=== PATIENT | male | born 1955 | race Caucasian/White ===

== ENCOUNTER 2022-11-25 07:15 | Inpatient (IN) | payer MEDICARE, BC ==
[~2022-11-25] VITALS: Ht 177.8 cm; Wt 95.3 kg
--- NOTE | 2022-11-25 07:36 | NUR ---
Dr De La Cruz at the bedside for MSE.
[2022-11-25] MEDS ORDERED: IV NS 1000 ML 1,000 ML IV ONE (07:45)
[2022-11-25 07:59] LABS: HEMATOCRIT 49.7 % (36.7-47.1); MEAN CORPUSCULAR HEMOGLOBIN 29.6 uug (23.8-33.4); MEAN CORPUSCULAR VOLUME 87.1 fL (73.0-96.2); PLATELET COUNT (AUTO) 217 K/uL (152-348)
[2022-11-25 08:03] LABS: SITE, VBG LEFT BRACHIAL
[2022-11-25 08:13] LABS: BILIRUBIN,TOTAL 0.8 mg/dL (0.2-1.0); CREATININE 1.7 mg/dL (0.6-1.3); POTASSIUM 4.3 mmol/L (3.5-5.1); TOTAL PROTEIN, SERUM 7.2 g/dL (6.4-8.2)
[2022-11-25 08:20] LABS: THYROID STIMULATING HORMONE 6.738 mIU/mL (0.358-3.740)
--- NOTE | 2022-11-25 10:16 | NUR ---
RODRICK Romeo spoke to Que Ayala for M/S admit.
[2022-11-25] MEDS ORDERED: ONDANSETRON 4 MG/2 ML VIAL IV PRN (10:45)
[2022-11-25] MEDS ORDERED: MAGNESIUM HYDROXIDE 30 ML LIQUID UDC PO PRN (10:45)
[2022-11-25] MEDS ORDERED: REMEDY ESSENTIAL ZINC PASTE 113 GM TP PRN (10:45)
[2022-11-25] MEDS ORDERED: ACETAMINOPHEN 325 MG TABLET PO PRN (10:45)
[2022-11-25] MEDS ORDERED: LISD70CA PO (11:02)
[2022-11-25] MEDS ORDERED: BUPR200T3 PO (11:02)
[2022-11-25] MEDS ORDERED: VILA40TA PO (11:02)
[2022-11-25] MEDS ORDERED: AMPH10CA3 PO (11:02)
[2022-11-25] MEDS ORDERED: PRAM0.253 PO (11:03)
--- NOTE | 2022-11-25 11:25 | NUR ---
Pt signed MRI questioner, placed in the chart.
--- NOTE | 2022-11-25 11:28 | NUR ---
Spoke to blossom Sosa, ambulance transfer at 1300 by [facility]. Pt made aware.
[2022-11-25 11:29] LABS: *BILIRUBIN,URIN NEGATIVE (NEGATIVE); *BLOOD, URINE NEGATIVE (NEGATIVE); *CLARITY,URINE CLEAR (CLEAR); *COLOR,URINE YELLOW (YELLOW); *KETONES,URINE 2+ (NEGATIVE); *UROBILINOGEN,URINE 0.2 E.U./dl (NORMAL); LEUKOCYTE ESTERASE ,URINE NEGATIVE (NEGATIVE); NITRITE, URINE NEGATIVE (NEGATIVE); UGLUCOSE 3+ (NEGATIVE)
--- NOTE | 2022-11-25 13:27 | NUR ---
Report given to instrument inspector. Pt left ER via gurney to go to [facility] for MRI.
--- NOTE | 2022-11-25 13:35 | NUR ---
report receive from claritza fields. pt presented in er complaining of lower leg weakness. pt is aox3-4. no complain of pain.pt blood sugar level is 493 but asymptomatic. pt has received 1L NS bolus at er. pt will go to [facility] for brain MRI. pt will be admitted [facility] floor. asia sargent N.P will follow up care
--- NOTE | 2022-11-25 15:25 | NUR ---
Pt back from MRI, belongings and admit paper provided for food technologist. Pt was tranfered to room 320 by food technologist.
[2022-11-25 15:40] VITALS: BP 137/77
[2022-11-25] MEDS: ASPIRIN 81 MG TAB.CHEW PO SCH (17:39)
[2022-11-25] MEDS: IV NS 1000 ML 1,000 ML IV PRN (17:39)
[2022-11-25] MEDS ORDERED: DEXTROSE 50% 50 ML DISP.SYRIN IV PRN (17:45)
[2022-11-25] MEDS ORDERED: INSULIN REGULAR, HUMAN 300 UNITS/3 ML VIAL SQ PRN (17:45)
--- NOTE | 2022-11-25 18:35 | NUR ---
bs 426. gave 20 units humulin r prn. notified. no new order
[2022-11-25] MEDS: BLOOD SUGAR DIAGNOSTIC 1 EACH STRIP VI SCH ×2 (18:41→21:33)
[2022-11-25] MEDS: INSULIN REGULAR, HUMAN 300 UNIT/3 ML VIAL SQ PRN (18:45)
[2022-11-25] MEDS ORDERED: DEXT10TA7 PO (19:37)
[2022-11-25] MEDS ORDERED: PRAM1TAB7 PO (20:36)
--- NOTE | 2022-11-25 21:30 | NUR ---
patient in bed aaox4 . no respiratory distress noted . ivf bee; saline in progress at 150 ml/hr. fingerstick done and result is 273 to follow ISS .
[2022-11-25] MEDS: ATORVASTATIN 20 MG TABLET PO SCH (21:33)
--- NOTE | 2022-11-25 21:33 | NUR ---
DUE PM MEDICATION GIVEN AND PATIENT TOOK MEDICATION WITH WATER .
[2022-11-26] MEDS: IV NS 1000 ML 1,000 ML IV PRN ×3 (00:22→19:15)
--- NOTE | 2022-11-26 00:30 | NUR ---
SLEEPING IN BED NO S/S OF PAIN OR RESPI.DISTRESS
[2022-11-26] MEDS: BLOOD SUGAR DIAGNOSTIC 1 EACH STRIP VI SCH ×4 (06:32→20:23)
[2022-11-26 07:28] LABS: MEAN CORPUSCULAR HEMOGLOBIN 29.4 uug (23.8-33.4); MEAN CORPUSCULAR VOLUME 88.1 fL (73.0-96.2); PLATELET COUNT (AUTO) 164 K/uL (152-348)
[2022-11-26] MEDS: buPROPion SR 100 MG TABLET.SA PO SCH (08:19)
[2022-11-26] MEDS: PRAMIPEXOLE 1 MG TABLET PO SCH (08:19)
[2022-11-26] MEDS: ASPIRIN 81 MG TAB.CHEW PO SCH (08:19)
[2022-11-26] MEDS: INSULIN REGULAR, HUMAN 300 UNIT/3 ML VIAL SQ PRN ×4 (08:21→20:25)
[2022-11-26 08:25] LABS: CREATININE 1.6 mg/dL (0.6-1.3); POTASSIUM 4.7 mmol/L (3.5-5.1)
[2022-11-26] MEDS ORDERED: VILAZODONE HYDROCHLORIDE 40 MG PO SCH (09:00)
[2022-11-26] MEDS ORDERED: LISDEXAMFETAMINE DIMESYLATE 70 MG PO SCH (09:00)
[2022-11-26 09:40] LABS: *BILIRUBIN,URIN NEGATIVE (NEGATIVE); *BLOOD, URINE NEGATIVE (NEGATIVE); *CLARITY,URINE CLEAR (CLEAR); *COLOR,URINE YELLOW (YELLOW); *KETONES,URINE 1+ (NEGATIVE); *UROBILINOGEN,URINE 0.2 E.U./dl (NORMAL); LEUKOCYTE ESTERASE ,URINE NEGATIVE (NEGATIVE); NITRITE, URINE NEGATIVE (NEGATIVE); PH,URINE 5.5 (5.0-8.0); UGLUCOSE 2+ (NEGATIVE)
[2022-11-26 09:51] LABS: *CREATININE,URINE 79.3 mg/dL (30-125); *URINE TOTAL PROTEIN RANDOM 13.7 mg/dL (<150/24HR)
[2022-11-26] MEDS ORDERED: ALPRAZOLAM 0.25 MG TABLET PO PRN (11:00)
[2022-11-26 11:57] VITALS: BP 106/50
[2022-11-26 14:44] LABS: RBC,URINE NONE SEEN /HPF (0-3); WBC,URINE NONE SEEN /HPF (0-3)
[2022-11-26 14:45] LABS: BACTERIA,URINE NONE SEEN /HPF (NONE SEEN); SQUAMOUS EPITHELIAL CELL,UR FEW /HPF (NONE SEEN)
[2022-11-26 14:49] LABS: CYSTINE CRYSTALS,URINE MODERATE /HPF (NONE SEEN)
[2022-11-26 15:33] VITALS: BP 119/61
[2022-11-26] MEDS: FENOFIBRATE NANOCRYSTALLIZED 48 MG TABLET PO SCH (18:01)
[2022-11-26 20:00] VITALS: BP 121/65
[2022-11-26] MEDS: ATORVASTATIN 20 MG TABLET PO SCH (20:18)
[2022-11-27 04:00] VITALS: BP 106/64
[2022-11-27] MEDS: IV NS 1000 ML 1,000 ML IV PRN (04:45)
[2022-11-27] MEDS: BLOOD SUGAR DIAGNOSTIC 1 EACH STRIP VI SCH ×2 (06:05→11:51)
[2022-11-27 07:05] LABS: HEMATOCRIT 46.3 % (36.7-47.1); MEAN CORPUSCULAR HEMOGLOBIN 29.4 uug (23.8-33.4); MEAN CORPUSCULAR VOLUME 87.9 fL (73.0-96.2); PLATELET COUNT (AUTO) 155 K/uL (152-348)
[2022-11-27 07:45] LABS: BILIRUBIN,TOTAL 0.5 mg/dL (0.2-1.0); CREATININE 1.2 mg/dL (0.6-1.3); PHOSPHOROUS 3.5 mg/dL (2.5-4.9); POTASSIUM 3.9 mmol/L (3.5-5.1); TOTAL PROTEIN, SERUM 6.1 g/dL (6.4-8.2); URIC ACID 5.3 mg/dL (3.5-7.2)
[2022-11-27] MEDS: INSULIN REGULAR, HUMAN 300 UNIT/3 ML VIAL SQ PRN ×2 (08:43→11:52)
[2022-11-27] MEDS: FENOFIBRATE NANOCRYSTALLIZED 48 MG TABLET PO SCH (08:44)
[2022-11-27] MEDS: PRAMIPEXOLE 1 MG TABLET PO SCH (08:45)
[2022-11-27] MEDS: buPROPion SR 100 MG TABLET.SA PO SCH (08:45)
[2022-11-27] MEDS: ASPIRIN 81 MG TAB.CHEW PO SCH (08:45)
[2022-11-27] MEDS ORDERED: FENO48TA PO (09:47)
[2022-11-27] MEDS ORDERED: ASPI81TA31 PO (09:47)
[2022-11-27] MEDS ORDERED: ATOR20TA PO (09:47)
[2022-11-27] MEDS ORDERED: METF-440 PO (09:47)
[2022-11-27 12:00] VITALS: BP 136/85
--- NOTE | 2022-11-27 15:30 | NUR ---
Patient dressed & dc'd iv angiocath found intact. Wants to leave. Instructed Dr. Munoz here to see him.
--- NOTE | 2022-11-27 16:00 | NUR ---
Left ambulatory after speaking with Raudel to girlfriend in auto.
[2022-11-27] MEDS ORDERED: NUTRISOURCE FIBER 4 GM PACKET PO SCH (17:45)
[2022-11-30 11:06] LABS: A/G RATIO 1.1 (0.7-1.7); ALBUMIN 2.8 g/dL (2.9-4.4); ALPHA-1-GLOBULIN 0.2 g/dL (0.0-0.4); ALPHA-2-GLOBULIN 0.7 g/dL (0.4-1.0); BETA GLOBULIN 1.1 g/dL (0.7-1.3); GAMMA GLOBULIN 0.6 g/dL (0.4-1.8); GLOBULIN, TOTAL 2.6 g/dL (2.2-3.9); M-SPIKE Not Observed g/dL (Not Observed)
== END 2022-11-27 16:00 | disposition home or self-care (01) | DRG 637 ==
LOC: ER 07:15 → MEDSURG3 15:27
PROVIDERS: ADMIT Nurse Practitioner Acute Care; ATTEND Nurse Practitioner Acute Care
DX: E11.65 Type 2 diabetes mellitus with hyperglycemia (principal); N17.0 Acute kidney failure with tubular necrosis; D68.69 Other thrombophilia; E66.01 Morbid (severe) obesity due to excess calories; E11.22 Type 2 diabetes mellitus with diabetic chronic kidney disease; E78.5 Hyperlipidemia, unspecified; E86.1 Hypovolemia; D72.829 Elevated white blood cell count, unspecified; E05.90 Thyrotoxicosis, unspecified without thyrotoxic crisis or storm; F32.A Depression, unspecified; G62.9 Polyneuropathy, unspecified; N18.9 Chronic kidney disease, unspecified; Z20.822 Contact with and (suspected) exposure to COVID-19; F98.8 Other specified behavioral and emotional disorders with onset usually occurring in childhood and adolescence; R26.0 Ataxic gait; E11.40 Type 2 diabetes mellitus with diabetic neuropathy, unspecified; R90.89 Other abnormal findings on diagnostic imaging of central nervous system; Z68.30 Body mass index [BMI] 30.0-30.9, adult
CPT/HCPCS: 36415; 36600; 70450; 70551; 71045; 76770; 82803; 83735; 83935; 83970; 84100; 84155; 84156; 84165; 84300; 84443; 84480; 84550; 85025; 85651; 93005; A4663; G0378; J1815; J7040